=== PATIENT | female | born 1985 ===

== ENCOUNTER 2018-01-20 21:34 | Emergency (ER) | payer SELFPAY ==
--- NOTE | 2018-01-20 23:52 | ED ---
Upper Extremity Pain - HPI Summary HPI Summary: Patient is an otherwise healthy 32-year-old female who presents to the ED after a skiing accident after falling on an outstretched arm and injuring her left wrist. She endorses left dorsal wrist pain and there is obvious deformity. She arrives in a makeshift splint. Denies any numbness or tingling. Denies any color or temperature changes. Pulses +2 and intact bilaterally. Denies any elbow pain or hand pain. She has never injured the left wrist before. Symptoms are aggravated by pronation and supination and relieved with rest. Relieved with ibuprofen and ice. - History of Current Complaint Chief Complaint: EDExtremityUpper Stated Complaint: LT ARM INJURY Time Seen by Provider: 01/20/18 21:49 Hx Obtained From: Patient Mechanism Of Injury: Direct Blow Onset/Duration: Started Hours Ago Timing: Constant Severity Initially: Moderate Severity Currently: Moderate Pain Location: Wrist Character: Aching Aggravating Factor(s): Movement, Lifting, Flexion, Extension, Internal/External Rotation Alleviating Factor(s): Rest, Ice Associated Signs & Symptoms: Positive: Swelling Related History: Dominant Hand Right - Risk Factors Non-Orthopedic Risk Factor: Negative DVT Risk Factors: Negative Septic Arthritis Risk Factor: Negative Compartment Syndrome Risk Factors: Pain - Allergies/Home Medications Allergies/Adverse Reactions: Allergies Allergy/AdvReac Type Severity Reaction Status Date / Time No Known Allergies Allergy Verified 01/20/18 22:07 PMH/Surg Hx/FS Hx/Imm Hx Previously Healthy: Yes - Immunization History Hx Pertussis Vaccination: No Immunizations Up to Date: Unable to Obtain/Confirm Infectious Disease History: No Infectious Disease History: Denies: Traveled Outside the [place] in Last 30 Days - Social History Occupation: Unemployed Lives: With Family Alcohol Use: Occasionally Hx Substance Use: No Substance Use Type: Reports: None Hx Tobacco Use: Yes Smoking Status (MU): Light Every Day Tobacco Smoker Review of Systems Constitutional: Negative Negative: Fever, Chills, Fatigue, Skin Diaphoresis Eyes: Negative Cardiovascular: Negative Respiratory: Negative Negative: Abdominal Pain, Vomiting, Diarrhea Genitourinary: Negative Positive: no symptoms reported, see HPI Musculoskeletal: Negative Skin: Negative Psychological: Normal All Other Systems Reviewed And Are Negative: Yes Physical Exam Triage Information Reviewed: Yes Vital Signs On Initial Exam: Initial Vitals Temp Pulse Resp BP Pulse Ox 98.3 F 60 14 115/64 98 03/02/18 21:37 01/20/18 21:37 01/20/18 21:37 01/20/18 21:37 01/20/18 21:37 Vital Signs Reviewed: Yes Appearance: Positive: Well-Appearing, Well-Nourished Skin: Positive: Warm, Skin Color Reflects Adequate Perfusion Head/Face: Positive: Normal Head/Face Inspection Eyes: Positive: EOMI, CARLYN, Conjunctiva Clear Neck: Positive: Supple, No Lymphadenopathy Respiratory/Lung Sounds: Positive: Clear to Auscultation, Breath Sounds Present Cardiovascular: Positive: Normal, Pulses are Symmetrical in both Upper and Lower Extremities Musculoskeletal: Positive: Pain @ - Dorsum of the left wrist with obvious deformity and swelling Neurological: Positive: Sensory/Motor Intact, Alert, Oriented to Person Place, Time, Speech Normal Psychiatric: Positive: Normal, Affect/Mood Appropriate Diagnostics - Vital Signs Vital Signs Temp Pulse Resp BP Pulse Ox 01/20/18 21:37 98.3 F 60 14 115/64 98 - Laboratory Lab Statement: Any lab studies that have been ordered have been reviewed, and results considered in the medical decision making process. Course/Dx - Course Course Of Treatment: During the course of treatment, the patient's evaluated for left wrist pain. X-rays obtained. Left distal radial fracture with dorsal angulation. Read by Dr. Ruggiero and myself in the emergency department. Will await further radiology report and call with any differing results are changes. Dr. Ruggiero to provide injected 5ml bupivacaine into the dorsum of the left wrist into the hematoma with good effect. She is then placed in finger traps for 25 minutes. Tolerated well and denies any pain. Flexion and traction of the wrist for reduction. Postreduction x-rays obtained and will be sent to ortho. Sugar tong distal short arm Ortho-Glass applied. She is referred ortho clinic. - Diagnoses Provider Diagnoses: Distal radial fracture Discharge - Discharge Plan Condition: Stable Disposition: HOME Patient Education Materials: Wrist Fracture in Adults (ED) Referrals: [facility] - Rip SMITH [Primary Care Provider] - Roderick Chan MD [Medical Doctor] - Additional Instructions: Follow up with ortho clinic I have given you a referral Tuesday morning for an appointment Keep the splint dry Keep in sling Ibuprofen 600 mg 3 times daily
[2018-01-21 00:21] VITALS: BP 107/57
--- NOTE | 2018-01-21 07:25 | RAD ---
HISTORY: Fall, left wrist injury COMPARISONS: None VIEWS: 3, Frontal, lateral, and oblique views of the left wrist FINDINGS: BONE DENSITY: Normal. BONES: There is a dorsally angulated comminuted fracture of the distal radial metaphysis with articular extension. JOINTS: There is no arthropathy. ALIGNMENT: There is no dislocation. SOFT TISSUES: Unremarkable. OTHER FINDINGS: None. IMPRESSION: DISTAL LEFT RADIUS FRACTURE
--- NOTE | 2018-01-21 07:36 | RAD ---
HISTORY: Post reduction left wrist fracture COMPARISONS: January 20, 2018 at 9:54 PM VIEWS: 3, Frontal, lateral, and oblique views of the left wrist, performed at 11:59 PM, performed in a splint which appears fine bone detail FINDINGS: BONE DENSITY: Normal. BONES: Again noted is a comminuted fracture with articular extension of the distal radial metaphysis. There has been interval reduction of the dorsal angulation. JOINTS: There is no arthropathy. ALIGNMENT: There is no dislocation. SOFT TISSUES: Unremarkable. OTHER FINDINGS: None. IMPRESSION: INTERVAL REDUCTION OF THE DORSAL ANGULATION OF THE DISTAL LEFT RADIAL FRACTURE.
== END 2018-01-21 00:23 | disposition home or self-care (01) ==
LOC: ED 21:34
DX: S52.502A Unspecified fracture of the lower end of left radius, initial encounter for closed fracture (principal); W00.9XXA Unspecified fall due to ice and snow, initial encounter; Y93.23 Activity, snow (alpine) (downhill) skiing, snowboarding, sledding, tobogganing and snow tubing; Y92.9 Unspecified place or not applicable; F17.200 Nicotine dependence, unspecified, uncomplicated
CPT/HCPCS: 25605; 99282

== ENCOUNTER 2018-01-27 09:34 | Day surgery (SDC) | payer OTHER ==
--- NOTE | 2018-01-26 10:29 | HP ---
PREOPERATIVE HISTORY AND PHYSICAL: DATE OF ADMISSION/SURGERY: 01/27/18 [facility] ATTENDING SURGEON: Nolvia Sainz MD * (DICTATED BY ESTEFANIA MATIAS) PROCEDURE: Left wrist open reduction internal fixation. CHIEF COMPLAINT: Left wrist fracture. HISTORY OF PRESENT ILLNESS: This is a 32-year-old female, who sustained injury to her wrist on 01/20/18 when she was snowboarding and fell backwards onto her outstretched left hand. She was seen at [facility] ED and had an x- ray, which showed a comminuted extraarticular fracture of the distal radius. The fracture was reduced and splinted and she was referred to Dr. Sainz for further evaluation and followup. Currently, she rates her pain as 3 out of 10. She is only using [id number] medications for pain relief. She has had her forearm maintained in a sugar-tong splint. She denies any numbness or tingling in the hand. After review of x-rays and evaluation by Dr. Sainz, she has consented to proceed with surgical intervention at this time in the form of a left wrist open reduction and internal fixation. The patient currently has a ring on her ring finger of the left hand. She was given instruction between now and date of surgery to elevate and wiggle her fingers in hopes of being able to remove the ring prior to surgery, if not the ring will be cut off on the morning of surgery. PAST MEDICAL HISTORY: Hypothyroidism. PAST SURGICAL HISTORY: None. CURRENT MEDICATIONS: 1. Levothyroxine 50 mcg daily. 2. Ibuprofen p.r.n. 3. Tylenol p.r.n. ALLERGIES: No known drug allergies. FAMILY MEDICAL HISTORY: Skin cancer. SOCIAL HISTORY: The patient is a student at [employer] in the [employer] program. She is a current smoker. She reports smoking 1 to 2 cigarettes per day and has done so over the past 5 years. She denies illicit drug use. She does drink alcohol on occasion. REVIEW OF SYSTEMS: General: Negative for fevers, chills, or night sweats. No known anesthesia problems. HEENT: Negative for headache, lightheadedness, or syncopal episodes. Integumentary: Negative for abrasions, lesions, or open wounds. Cardiothoracic: Negative for hypertension, chest pain, palpitations, or edema. Pulmonary: Negative for shortness of breath with exertion, chronic cough, COPD. GI: Negative for nausea, vomiting, diarrhea, constipation, or GERD. : Negative for nocturia, urinary frequency, urgency, history of UTIs, kidney problems. Musculoskeletal: Positive for current complaint. Neurological: Negative for paresthesias, numbness, history of seizure, stroke, or epilepsy. Endocrine: Negative for diabetes. Positive for hypothyroidism. Hematologic: Negative for easy bruising, anemia, excessive bleeding, or history of DVT. Infectious Disease: Negative for history of MRSA, hepatitis C, or HIV. PHYSICAL EXAMINATION GENERAL: Well-developed, well-nourished 32-year-old female in no acute distress. VITAL SIGNS: Height 5 feet 3 inches, weight 105 pounds. Blood pressure 104/62. HEENT: Normocephalic, atraumatic. Pupils are equal, round, and reactive to light and accommodation. Extraocular movements are intact. Throat is clear. NECK: Supple. No palpable lymph nodes. PULMONARY: Lungs are clear to auscultation bilaterally. No wheezes, rales, or rhonchi. CARDIOVASCULAR: Regular rate and rhythm. S1 and S2. No murmurs, rubs, or gallops. No edema. ABDOMEN: Positive bowel sounds, soft, nontender. NEUROLOGICAL: Alert and oriented x3. Cranial nerves II through XII are intact. Sensation is intact to light touch. MUSCULOSKELETAL: On exam of the left wrist, there is swelling in the fingers along with scattered ecchymosis. There is a ring on the ring finger, however, it does not appear to be compromising circulation at this point and is easily moved about the finger, although it will not slide off the finger. She has mild deformity and ecchymosis and swelling at the wrist. She has good movement in her fingers. IMAGING STUDIES: X-rays AP, lateral and oblique of the left wrist shows an extraarticular fracture of the distal radius with some apex volar angulation and displacement. IMPRESSION: Left distal radius fracture. PLAN: The patient is scheduled to undergo a left wrist open reduction internal fixation with Dr. Sainz on 01/27/18. She will return to the office 10 days after surgery for followup and suture removal. A prescription for Stanton was e- scribed to the patient's pharmacy for postoperative pain management. ESTEFANIA MATIAS [id number]/[facility] #: [id number] [facility] HOSPITALJason
[~2018-01-27 09:34] MED LIST: Buffered Lidocaine 0.9% SYRIN* 5 ML/SYR SYRINGE INTRADERM ONE; Dexamethasone IV* 4 MG/ML 1 ML (4 MG) IV SLOW PU ONE; Dexamethasone IV* 4 MG/ML 1 ML (4 MG) ONE; Famotidine IV* 10 MG/ML 2 ML (20 mg) IV ONE; Famotidine IV* 10 MG/ML 2 ML (20 mg) ONE
[2018-01-27] MEDS ORDERED: ceFAZolin 2 GM PREMIX (*) 2 GM/50 ML BAG IVPB ONE (09:40)
[2018-01-27] MEDS ORDERED: Midazolam* 1 MG/ML 2 ML VIAL (2 MG) ONE (10:08)
[2018-01-27] MEDS ORDERED: fentaNYL* 50 MCG/ML 2 ML VIAL (100 MCG VIAL) ONE (10:08)
[2018-01-27] MEDS ORDERED: ROPIVACAINE 5 MG/ML 30 ML BTL (0.5%) ONE (10:09)
[2018-01-27] MEDS ORDERED: Lidocaine 2% PF * 5 ML VIAL ONE (10:10)
[2018-01-27] MEDS ORDERED: Propofol* 10 MG/ML 20 ML BTL IV PUSH ONE (10:10)
[2018-01-27] MEDS ORDERED: fentaNYL* 50 MCG/ML 2 ML VIAL (100 MCG VIAL) IV PRN (11:13)
[2018-01-27] MEDS ORDERED: oxyCODONE/Acetamin 5/325 MG* TAB PO PRN (11:13)
[2018-01-27] MEDS ORDERED: Naloxone* 0.4 MG/ML 1 ML VIAL IV PRN (11:13)
[2018-01-27] MEDS ORDERED: PROCHLORPERAZINE INJ 5 MG/ML 2 ML VIAL IV PRN (11:13)
[2018-01-27] MEDS ORDERED: HYDROcodone/ACETAMIN 5-325 MG* 1 TAB PO PRN (11:13)
[2018-01-27] MEDS ORDERED: Ondansetron INJ* 2 MG/ML VIAL ONE (11:20)
[2018-01-27] MEDS ORDERED: EPHEDrine (Pressors)* 50 MG/ML VIAL ONE (11:31)
[2018-01-27 12:32] VITALS: BP 112/63
--- NOTE | 2018-01-27 15:18 | RAD ---
INDICATION: ORIF LEFT wrist. COMPARISON: January 20, 2018 TECHNIQUE: 1 minute 6 seconds fluoroscopy. FINDINGS: Volar cortical plate and screws traverse the distal radius fracture with resulting gross anatomic alignment. IMPRESSION: Procedural fluoroscopy. CPT II Codes: 6045F
--- NOTE | 2018-01-27 20:16 | OP ---
DATE OF OPERATION: 01/27/18 [facility] DATE OF : 87 SURGEON: Nolvia Sainz MD POOL LIFEGUARD: ESTEFANIA Davis ANESTHESIA: Block plus general. PRE-OP DIAGNOSIS: Left distal radius fracture, comminuted and intraarticular. POST-OP DIAGNOSIS: Left distal radius fracture, comminuted and intraarticular. OPERATIVE PROCEDURE: Open reduction and internal fixation of left distal radius. ESTIMATED BLOOD LOSS: Zero. TOURNIQUET TIME: About 30 minutes. INDICATIONS: Lelo is a 32-year-old female who fell snowboarding, injuring her left wrist. She has a comminuted intraarticular fracture of the distal radius. She presents for ORIF. DESCRIPTION OF PROCEDURE: The patient was brought to the operating room, was given a block anesthetic and then a general anesthetic. She was placed in a supine position on the operating table with a tourniquet around her left upper arm. The skin of her left upper extremity was prepped and draped in the usual sterile fashion. A longitudinal incision was made over the FCR tendon, we dissected sharply through the FCR tendon sheath both superficially and deep. The flexor muscles were retracted and then the pronator quadratus was incised and subperiosteally dissected off the distal radius. The fracture was comminuted and intraarticular with at least 3 articular fragments. With traction and manipulation, the fracture fragments were reduced and then a 2.4 variable angle plate from the [employer] Distal Radius set was secured with 1 proximal screw and 4 distal screws, securing at least 3 intraarticular fragments. The position of the hardware and fracture fragments checked on the C -arm in the AP and lateral views and found to be satisfactory. The remaining 2 proximal screws were placed and then the wound was irrigated with saline. The pronator quadratus was repaired with 2-0 Vicryl suture in interrupted fashion. The flexor carpi radialis sheath was repaired with 2-0 Polysorb suture and then the skin edges reapproximated with 4-0 nylon suture. The wound was dressed with Xeroform, 4x4, Webril and a volar splint. The patient tolerated the procedure well and was brought to the recovery room in good condition. [id number]/[facility] #: [id number] MTDD
== END 2018-01-27 12:55 | disposition home or self-care (01) ==
LOC: OREAST 09:34
PROVIDERS: ATTEND Orthopaedic Surgery
DX: S52.552A Other extraarticular fracture of lower end of left radius, initial encounter for closed fracture (principal); E03.9 Hypothyroidism, unspecified; F17.210 Nicotine dependence, cigarettes, uncomplicated; V00.131A Fall from skateboard, initial encounter; Y93.23 Activity, snow (alpine) (downhill) skiing, snowboarding, sledding, tobogganing and snow tubing; Y92.39 Other specified sports and athletic area as the place of occurrence of the external cause; G89.18 Other acute postprocedural pain
CPT/HCPCS: 76000; 81025; C1713; C1776; J0690; J1100; J2250; J2405; J2704; J2795; J3010